=== PATIENT | female | born 1965 | race African-American/Black ===

== ENCOUNTER 2016-08-29 11:23 | Emergency (ER) | payer MEDICARE | END 2016-08-29 12:32 | disposition home or self-care (01) | LOC: CED 11:23 | DX: J06.9 Acute upper respiratory infection, unspecified (principal); Z20.818 Contact with and (suspected) exposure to other bacterial communicable diseases; I10 Essential (primary) hypertension; F17.210 Nicotine dependence, cigarettes, uncomplicated | CPT/HCPCS: 99282 ==